=== PATIENT | female | born 1990 | race Caucasian/White ===

== ENCOUNTER → 2021-12-19 15:17 | Outpatient (CLI) | payer OTHER, SELFPAY ==
--- NOTE | 2021-12-19 15:20 | DI.US.S_ITS ---
PROCEDURE: US OB <= 14 WEEKS FETUS INDICATIONS: DATING AND VIABILITY OUTSIDE/PRIOR DATING DATA: Last menstrual period (LMP): 10/26/2021. LMP-based estimated date of delivery (LILLIE): 07/23/2022. First dating scan (date and location): 12/19/2021. Estimated date of delivery (LILLIE) from first dating scan: 07/27/2022. TECHNIQUE: Real-time scanning was performed of the fetus and maternal pelvic organs, with image documentation. COMPARISON: None. FINDINGS: A single living intrauterine gestation is present, with a heart rate of 139 beats per minute. [place]-rump length is 10 mm, corresponding to a 7 week 1 day gestation. There is a possible small perigestational hemorrhage measuring roughly 12 mm. The yolk sac appears slightly irregular. Maternal organs: Ovaries left ovarian cyst measuring 28 mm. Right ovary/adnexal region grossly unremarkable.. IMPRESSION: 1. Single living intrauterine gestation. 2. Slightly irregular yolk sac. Recommend continued sonographic and clinical follow-up. 3. Left ovarian cyst. Recommend attention to this region on follow-up imaging studies. We strive to produce accurate, complete, and clear reports of imaging services. To assist us in improving patient care, this report was composed using standard report templates and voice recognition software. Therefore, it may contain abnormal punctuation, insertions and/or omissions. Occasional wrong-word or sound-alike substitutions may occur. Though we review the report and make efforts to correct it, we do recommend that the report be read carefully in proper context to recognize any text inaccuracies. Dictated by: Jacy Thompson M.D. on 12/19/2021 at 16:26 Transcribed by: SOFIE on 12/19/2021 at 16:28 Approved by: Jacy Thompson M.D. on 12/19/2021 at 16:57
== END ==
PROVIDERS: Referring Provider Obstetrics & Gynecology; Visit Provider Obstetrics & Gynecology
DX: O34.81 Maternal care for other abnormalities of pelvic organs, first trimester (principal); N83.202 Unspecified ovarian cyst, left side; Z3A.01 Less than 8 weeks gestation of pregnancy
CPT/HCPCS: 36415; 76801; 76817; 80055; 81003; 81015; 86787; 86803; 86850; 86900; 86901; 87086; 87389

== ENCOUNTER → 2021-12-19 16:12 | Outpatient (CLI) | payer OTHER, SELFPAY ==
[2021-12-19 16:57] LABS: Add Manual Diff / Slide Review NO; Basophils Absolute Auto 100 /uL (0-100); Basophils Percent Auto 0.5 % (0-2); Eosinophils Absolute Auto 200 /uL (0-450); Eosinophils Percent Auto 2.2 % (2-4); Hematocrit 37.2 % (36-46); Hemoglobin 12.6 g/dL (12.0-16.0); Lymphocytes Absolute Auto 2800 /uL (1100-4500); Lymphocytes Percent Auto 26.3 % (25-40); Mean Corpuscular Hemoglobin 29.1 PG (26-34); Mean Corpuscular Volume 85.7 fL (80-100); Monocytes Absolute Auto 1000 /uL (0-900); Monocytes Percent Auto 9.5 % (3-14); Neutrophils Absolute Auto 6600 /uL (1500-7000); Neutrophils Percent Auto 61.5 % (50-75); Platelet Count 293 X10^3/uL (150-400); Red Blood Cell Count 4.34 X10^6/uL (4.0-5.2); Red Cell Distribution Width 12.6 % (11.6-14.8); White Blood Cell Count 10.7 X10^3/uL (4.5-11.0)
[2021-12-19 17:10] LABS: Appearance Urine UA CLEAR; Bilirubin Urine UA NEGATIVE (NEGATIVE); Color Urine UA YELLOW; Glucose Urine UA NEGATIVE (Negative); Ketones Urine UA NEGATIVE (NEGATIVE); Leukocyte Esterase Urine UA 1+ (NEGATIVE); Nitrite Urine UA NEGATIVE (Negative); Occult Blood Urine UA NEGATIVE (Negative); Protein Urine UA NEGATIVE (Negative); Specific Gravity Urine UA <=1.005 (1.000-1.035); Urobilinogen Urine UA 0.2 E.U./dL (0.2)
[2021-12-19 17:40] LABS: Bacteria Urine Occasional (0-1); RBC Urine 0-1/HPF (0-5/HPF); Squamous Epithelial Cell Urine 5-10 /HPF (0-5/HPF); WBC Urine 0-1/HPF (0-5/HPF)
[2021-12-20 05:11] LABS: Varicella IgG Antibody 767 index (Immune >165)
[2021-12-20 07:36] LABS: RPR Screen Non Reactive (Non Reactive)
[2021-12-22 16:37] LABS: Hepatitis B Surface Antigen NEGATIVE s/c (NEGATIVE); Rubella Antibody IgG 11.5 IU/mL (>15)
[2021-12-22 17:01] LABS: HIV 1 & 2 Ab/Ag 4th Gen Combo NEGATIVE (NEGATIVE); Hep C Virus Ab w/Reflex Quant NEGATIVE s/c (NEGATIVE)
== END ==
PROVIDERS: Referring Provider Obstetrics & Gynecology; Visit Provider Obstetrics & Gynecology
DX: Z34.81 Encounter for supervision of other normal pregnancy, first trimester (principal)
CPT/HCPCS: 36415; 80055; 81003; 81015; 86787; 86803; 86850; 86900; 86901; 87086; 87389

== ENCOUNTER → 2021-12-30 11:19 | Outpatient (CLI) | payer OTHER, SELFPAY ==
--- NOTE | 2021-12-30 11:20 | DI.US.S_ITS ---
PROCEDURE: US OB <= 14 WEEKS FETUS INDICATIONS: F/U viability from US on 12/19 OUTSIDE/PRIOR DATING DATA: Last menstrual period (LMP): 10/26/2021. LMP-based estimated date of delivery (LILLIE): 08/02/2022. Estimated date of delivery (LILLIE) from first dating scan: 08/06/2022 The calculations are made using the clinical LILLIE of 08/02/2022. TECHNIQUE: Real-time scanning was performed of the fetus and maternal pelvic organs, with image documentation. Endovaginal scanning was also performed to better visualize the fetus and maternal ovaries. COMPARISON: None. FINDINGS: Mean gestational sac diameter 5.2 centimeters. [place]-rump length 2.2 centimeters. Estimated gestational age 8 weeks 6 days on the basis of crown-rump length. heart rate 163 beats per minute small subchorionic hemorrhage adjacent to the gestational sac measuring 1.5 x 2.5 x 0.6 centimeters. This is increased from prior study. Anechoic left ovarian simple cyst. IMPRESSION: Single living intrauterine gestation with estimated gestational age 8 weeks 6 days on the basis of crown-rump length. Interval enlargement of small subchorionic hemorrhage. Dictated by: Mehul Thorne M.D. on 12/30/2021 at 14:21 Approved by: Mehul Thorne M.D. on 12/30/2021 at 14:23
== END ==
PROVIDERS: Referring Provider Obstetrics & Gynecology; Visit Provider Obstetrics & Gynecology
DX: Z3A.08 8 weeks gestation of pregnancy; Z36.2 Encounter for other antenatal screening follow-up
CPT/HCPCS: 76801

== ENCOUNTER → 2022-02-18 11:04 | Outpatient (CLI) | payer OTHER, SELFPAY ==
[2022-02-20 19:31] LABS: AFP, Serum 28.6 ng/mL (.); Estriol, Free 0.97 ng/mL (.); Inhibin A, Dimeric 101.57 pg/mL (.); Inhibin A, MoM 0.81 (.); Maternal Ethnicity Caucasian (.); Maternal Weight 222 lbs (.); Number of Fetuses No (.); OSBR Risk 1 IN 10000 (.); Results Report (.); Test Results *Screen Negative* (.); hCG, MoM 1.68 (.); hCG, Serum 52672 mIU/mL (.)
== END ==
PROVIDERS: Referring Provider Obstetrics & Gynecology; Visit Provider Obstetrics & Gynecology
DX: Z34.82 Encounter for supervision of other normal pregnancy, second trimester (principal); Z11.3 Encounter for screening for infections with a predominantly sexual mode of transmission; Z3A.16 16 weeks gestation of pregnancy
CPT/HCPCS: 82105; 82677; 84702; 86336

== ENCOUNTER → 2022-03-25 08:33 | Outpatient (CLI) | payer OTHER, SELFPAY ==
--- NOTE | 2022-03-25 08:34 | DI.US.S_ITS ---
PROCEDURE: US OB >= 14 WEEKS FETUS INDICATIONS: ANATOMY OUTSIDE/PRIOR DATING DATA: Last menstrual period (LMP): 10/26/2021. LMP-based estimated date of delivery (LILLIE): 08/02/2022. First dating scan (date and location): 12/19/2021. Estimated date of delivery (LILLIE) from first dating scan: 08/06/2022. The calculations are made using the clinical LILLIE of 08/02/2022. TECHNIQUE: Real-time scanning was performed of the fetus, with image documentation and biometric measurements. COMPARISON: [facility], OB <= 14 WEEKS FETUS, 12/30/2021, 12:35. FINDINGS: General: A single living intrauterine gestation is present. Presentation: Breech. Placenta: Placental position is posterior, without previa. Amniotic fluid index: 18 cm, normal range is 5-24 cm. Single deepest vertical pocket is 5.3 cm. heart rate: 135 beats per minute. Maternal cervical canal: 4 cm long. Normal lower limit is 2.5 cm. biometrics: Biparietal diameter: 5 cm, 21 weeks 2 days Head circumference: 19.1 cm, 21 weeks 2 days Abdominal circumference: 15.9 cm, 21 weeks 0 days Femur length: 3.7 cm, 21 weeks 5 days Clinically estimated gestational age: 21 weeks 3 days Composite gestational age from present scan: 21 weeks 2 days Estimated weight and percentile: 416 g, 39th percentile Anatomic survey: Neuro: Ventricles are non-dilated at less than 10 mm. Cisterna magna is normal at 3-11 mm. Cerebellum is normal in size and morphology. Nuchal skin fold: Normal at less than 6 mm between 14-21 weeks gestational age. Face: Nose and lips, facial profile are normal. Spine: No evidence for spina bifida. Heart: RVOT is normal. The four-chamber heart and LVOT are not well seen. Diaphragm: Diaphragm is intact. Stomach: Left-sided stomach is present. Kidneys: No hydronephrosis. Normal is less than 5 mm in 2nd trimester, less than 7 mm in 3rd trimester. Cord: 3-vessel cord. Placental cord insertion is not well seen. Bladder: Normal in size. Extremities: All 4 extremities identified. IMPRESSION: 1. [place] living intrauterine at 21 weeks 2 days based on today's ultrasound. This is concordant with the prior dating. Fetus is in the 39th percentile for weight. 2. Normal placenta and amniotic fluid. 3. heart, four-chamber view and LVOT are not well seen. The placental cord insertion is not well seen. Otherwise normal anatomic anatomy. Recommend follow-up OB ultrasound. We strive to produce accurate, complete, and clear reports of imaging services. To assist us in improving patient care, this report was composed using standard report templates and voice recognition software. Therefore, it may contain abnormal punctuation, insertions and/or omissions. Occasional wrong-word or sound-alike substitutions may occur. Though we review the report and make efforts to correct it, we do recommend that the report be read carefully in proper context to recognize any text inaccuracies. Dictated by: Marky Macdonald M.D. on 03/25/2022 at 17:38 Approved by: Marky Macdonald M.D. on 03/25/2022 at 17:45
== END ==
PROVIDERS: Referring Provider Obstetrics & Gynecology; Visit Provider Obstetrics & Gynecology
DX: Z34.82 Encounter for supervision of other normal pregnancy, second trimester (principal); Z3A.21 21 weeks gestation of pregnancy
CPT/HCPCS: 76811

== ENCOUNTER 2022-03-27 18:22 | Emergency (ER) | payer OTHER, SELFPAY ==
[2022-03-27] VITALS (10 sets, daily range): BP systolic 122–141; BP diastolic 57–64; PULSE 99–124; RESP 18–28; TEMP 37.1–37.8; O2SAT 92–97; BMI 34.0
--- NOTE | 2022-03-27 18:40 | ED_ITS ---
HPI - SOB/Dyspnea General Chief Complaint: Shortness of Breath/Dyspnea Stated Complaint: cant breath well, asthma Time Seen by Provider: 03/27/22 18:39 Source: patient Mode of arrival: Ambulatory Limitations: no limitations History of Present Illness HPI Narrative: This is a 22 week female with asthma history who has had mild fevers according to the patient, cough, shortness of breath and chest tightness for the last several days. Patient states her child is positive for RSV had initial symptoms the patient began having symptoms. She is had some nasal congestion. She denies any active chest pain she has felt quite tight, she is been using her albuterol hourly sometimes but states it has not made much difference. She normally only uses her albuterol occasionally not on a daily basis. Patient does not use any steroid inhalers. She denies any nausea or vomiting. She denies any diarrhea or constipation, no dysuria urgency or frequency. No new abdominal pain, no vaginal bleeding, discharge or fluid. Patient states she has not been having any complications with her so far. Denies any surgeries besides wisdom teeth and tympanostomy tubes as a child. No known drug allergies she does have tree nut allergies. No tobacco. Her /ob provider is Dr. Quiroz. Related Data Home Medications Medication Instructions Recorded Confirmed albuterol sulfate 90 mcg/actuation 2 puff inhalation Q6H PRN 12/23/21 03/16/22 aerosol inhaler epinephrine 0.3 mg/0.3 mL 0.3 mg IM ONCE 12/23/21 03/16/22 injection, auto-injector (EpiPen) fluoxetine 20 mg capsule (Prozac) 60 mg PO DAILY 12/23/21 03/16/22 prenat.vits,bryson,cre-[id number]-[id number] 1 tab PO DAILY 12/23/21 03/16/22 Previous Rx's Medication Instructions Recorded albuterol sulfate 2.5 mg/3 mL 2.5 mg (3 mL) inhalation Q4H PRN 03/27/22 (0.083 %) solution for nebulization shortness of breath or wheezing #75 mL prednisone 20 mg tablet 40 mg PO DAILY #10 tabs 03/27/22 Allergies Allergy/AdvReac Type Severity Reaction Status Date / Time sesame seed Allergy Severe Anaphylaxis Verified 03/16/22 08:17 onion Allergy Intermediate ITCHING Verified 03/16/22 08:17 tree nuts Allergy Severe Anaphylaxis Uncoded 03/16/22 08:17 Review of Systems Review of Systems ROS Unobtainable: All systems reviewed & are unremarkable except as noted in HPI and below Patient History Medical History Anxiety Asthma Chicken pox (~1994) Depression Eczema Hearing decreased Ovarian cyst Vision disorder Surgical History Anesthesia History of tympanostomy (~1997) [place] teeth extracted (~2009) Family History Mother Skin cancer Family/Other Breast cancer Grandmother Leukemia Father Cholecystitis Mental health problem Grandmother Mental health problem Social History marital status: number of children: 1 household members: spouse and children lives independently: Yes housing: condominium (townhouse (base housing)) pets and animals: Yes (1 cat, 1 puppy) education level: college (some college) occupational status: employed current occupational exposures/hazards: No special ashley needs: No travel history: recent (domestic only) and over 6 months ago seatbelt use: always water heater temp set < 120 deg: Yes working smoke detector in home: Yes fire extinguisher in home: Yes carbon monox detector in home: Yes firearms in home: Yes firearms unloaded and locked: Yes do you feel safe at home: Yes Smoking Status: Never smoker second hand exposure: No alcohol intake: never substance use type: does not use during the past year weight has: other (fluctuates ~25 lb range) well-balanced diet: daily or most days daily servings fruits/ve-4 caffeine: Yes (Occasional, aware of 200mg limit) Type(s) of exercise: none Smoking Status: Never smoker Exam Narrative Exam Narrative: GEN: well nourished, well appearing female, alert and oriented x 3, patient appears to be in mild distress. Patient feels warm to touch. HEENT: Atraumatic, pupils are equal round reactive to light, extraocular movements are intact, nares are clear, Throat is clear without any exudates, erythema, tonsillar enlargement or uvular deviation HEART: Tachycardic but regular rate and rhythm without murmur, clicks, rubs. No swelling bilateral lower extremities. LUNGS:Lungs breath sounds equal bilaterally, no wheezes appreciated patient has good air movement bilaterally, no rales, crackles in the base, chest moves symmetrically, patient does have tachypnea. No accessory muscle use. ABD:bowel sounds normal, soft, non-tender, no guarding, rebound, rigidity, no masses noted, no hepatosplenomegaly :No CVA tenderness MSCL: Non-tender, no muscle atrophy, muscles strength 5/5 upper and lower extremities, full range of motion, normal gait NEURO:CN 2-12 intact, sensation normal SKIN: No rash, erythema or other skin changes Initial Vital Signs Initial Vital Signs: Vital Signs Pulse Rate 122 H 03/27/22 18:25 Pulse Oximetry 97 03/27/22 18:25 Course Orders Ordered: Discontinued Medications Acetaminophen (Acetaminophen 325 Mg Tablet) 975 mg PO NOW ONE Stop: 03/27/22 18:47 Last Admin: 03/27/22 19:13 Dose: 975 mg Documented By: ALLYSSA Sodium Chloride (Normal Saline 0.9%) 1,000 mls @ 1,000 mls/hr IV BOLUS ONE Stop: 03/27/22 19:45 Last Infusion: 03/27/22 20:54 Dose: 0 mls/hr Documented By: Admin: 03/27/22 19:13 Dose: 1,000 mls/hr Documented By: ALLYSSA Methylprednisolone (Methylprednisolone 125 Mg/2 Ml Vial) 125 mg IV NOW ONE Stop: 03/27/22 18:55 Last Admin: 03/27/22 19:13 Dose: 125 mg Documented By: ALLYSSA Potassium Chloride (Potassium Chloride 20 Meq Tab) 40 meq PO NOW ONE Stop: 03/27/22 19:47 Last Admin: 03/27/22 20:07 Dose: 40 meq Documented By: ALLYSSA Reevaluation(s) Reevaluation #1: Patient is not wheezy on exam her weekly breathing has improved temperature is improved and well still slightly tachycardic. She notes she has not been using a spacer with her albuterol at home, may be more helpful that way she does have a nebulizer and asked for vials. We discussed doing a course of steroids she does feel like the Solu-Medrol here has been helpful. We did not do any albuterol or DuoNeb here but she has improved. Time: 21:10 Vital Signs Vital signs: Vital Signs - 8 hr 03/27/22 18:34 03/27/22 18:25 03/27/22 18:26 Temperature 100.1 F H Pulse Rate 118 H 122 H Respiratory Rate 28 H Blood Pressure 141/64 H 141/64 H Pulse Oximetry 96 97 Oxygen Delivery Method Room Air 03/27/22 18:26 03/27/22 18:30 03/27/22 18:30 Temperature Pulse Rate 121 H 123 H Respiratory Rate Blood Pressure 132/58 L Pulse Oximetry 96 95 Oxygen Delivery Method 03/27/22 19:00 03/27/22 19:00 03/27/22 19:30 Temperature Pulse Rate 124 H Respiratory Rate 23 Blood Pressure 124/60 122/64 Pulse Oximetry 95 Oxygen Delivery Method 03/27/22 19:30 03/27/22 20:00 03/27/22 20:00 Temperature Pulse Rate 116 H 116 H Respiratory Rate 21 26 H Blood Pressure 126/57 L Pulse Oximetry 93 92 Oxygen Delivery Method Room Air MDM - SOB/Dyspnea Lab Data Result diagrams: 03/27/22 18:53 03/27/22 18:53 Labs: Lab Results 03/27/22 03/27/22 03/27/22 Range/Units 18:40 18:40 18:53 WBC (4.5-11.0) X10^3/uL RBC (4.0-5.2) X10^6/uL Hgb (12.0-16.0) g/dL Hct (36-46) % MCV (80-100) fL MCH (26-34) PG MCHC (30-36) % RDW (11.6-14.8) % Plt Count (150-400) X10^3/uL Neut % (Auto) (50-75) % Lymph % (Auto) (25-40) % [place] % (Auto) (3-14) % Eos % (Auto) (2-4) % Baso % (Auto) (0-2) % Neut # (Auto) (0612-8634) /uL Lymph # (Auto) (3929-8736) /uL [place] # (Auto) (0-900) /uL Eos # (Auto) (0-450) /uL Baso # (Auto) (0-100) /uL PT (10.1-12.7) SECONDS INR (0.9-1.3) APTT (26-36) SECONDS Sodium (137-145) mmol/L Potassium (3.4-5.1) mmol/L Chloride (98-107) mmol/L Carbon Dioxide (22-32) mmol/L BUN (7-17) mg/dL Creatinine (0.52-1.04) mg/dL Estimated GFR (>60) mL/min BUN/Creatinine Ratio (6-22) Glucose (70-100) mg/dL Lactate (0.7-2.1) mmol/L Calcium (8.4-10.2) mg/dL Total Bilirubin (0.2-1.3) mg/dL AST (14-36) IU/L ALT (<35) IU/L Alkaline Phosphatase (38-126) U/L Total Creatine Kinase (30-135) U/L CK-MB (CK-2) CK-MB (CK-2) Rel Index Troponin I (0.01-0.034) ng/mL Total Protein (6.3-8.2) g/dL Albumin (3.5-5.0) g/dL Globulin (1.7-4.1) g/dL Albumin/Globulin Ratio (1.0-2.8) Procalcitonin (<0.5) ng/mL Urine Color Yellow Urine Appearance Clear Urine pH 7.5 (4.5-8.0) Ur Specific Shorter 1.020 (1.000-1.035) Urine Protein 2+ H (Negative) Urine Glucose (UA) Trace H (Negative) g/dL Urine Ketones 3+ H (NEGATIVE) Urine Occult Blood Negative (Negative) Urine Nitrate Negative (Negative) Urine Bilirubin Negative (NEGATIVE) Ur Bilirubin Confirm Positive H (Negative) Urine Urobilinogen 1.0 (0.2) E.U./dL Ur Leukocyte Esterase Trace H (NEGATIVE) Urine RBC 0-1/hpf (0-5/HPF) Urine WBC 1-5/hpf (0-5/HPF) Ur Squamous Epith Cells 5-10 /hpf H (0-5/HPF) Amorphous Sediment 1+ Urine Bacteria Moderate (10-30) H (None) Ur Culture Indicated? Specimen cultured SARS-CoV-2 (PCR) Negative (Negative) Influenza A (RT-PCR) Flu a negative (NEGATIVE) Influenza B (RT-PCR) Flu b negative (NEGATIVE) RSV (PCR) Positive A (Negative) 03/27/22 03/27/22 03/27/22 Range/Units 18:53 18:53 18:53 WBC 7.1 (4.5-11.0) X10^3/uL RBC 4.08 (4.0-5.2) X10^6/uL Hgb 12.0 (12.0-16.0) g/dL Hct 34.8 L (36-46) % MCV 85.2 (80-100) fL MCH 29.5 (26-34) PG MCHC 34.6 (30-36) % RDW 12.9 (11.6-14.8) % Plt Count 228 (150-400) X10^3/uL Neut % (Auto) 71.2 (50-75) % Lymph % (Auto) 13.3 L (25-40) % [place] % (Auto) 13.0 (3-14) % Eos % (Auto) 2.2 (2-4) % Baso % (Auto) 0.3 (0-2) % Neut # (Auto) 5000 (3671-9542) /uL Lymph # (Auto) 900 L (1205-4223) /uL [place] # (Auto) 900 (0-900) /uL Eos # (Auto) 200 (0-450) /uL Baso # (Auto) 0 (0-100) /uL PT 12.2 (10.1-12.7) SECONDS INR 1.1 (0.9-1.3) APTT 26 (26-36) SECONDS Sodium (137-145) mmol/L Potassium (3.4-5.1) mmol/L Chloride (98-107) mmol/L Carbon Dioxide (22-32) mmol/L BUN (7-17) mg/dL Creatinine (0.52-1.04) mg/dL Estimated GFR (>60) mL/min BUN/Creatinine Ratio (6-22) Glucose (70-100) mg/dL Lactate (0.7-2.1) mmol/L Calcium (8.4-10.2) mg/dL Total Bilirubin (0.2-1.3) mg/dL AST (14-36) IU/L ALT (<35) IU/L Alkaline Phosphatase (38-126) U/L Total Creatine Kinase (30-135) U/L CK-MB (CK-2) CK-MB (CK-2) Rel Index Troponin I (0.01-0.034) ng/mL Total Protein (6.3-8.2) g/dL Albumin (3.5-5.0) g/dL Globulin (1.7-4.1) g/dL Albumin/Globulin Ratio (1.0-2.8) Procalcitonin (<0.5) ng/mL Urine Color Urine Appearance Urine pH (4.5-8.0) Ur Specific Shorter (1.000-1.035) Urine Protein (Negative) Urine Glucose (UA) (Negative) g/dL Urine Ketones (NEGATIVE) Urine Occult Blood (Negative) Urine Nitrate (Negative) Urine Bilirubin (NEGATIVE) Ur Bilirubin Confirm (Negative) Urine Urobilinogen (0.2) E.U./dL Ur Leukocyte Esterase (NEGATIVE) Urine RBC (0-5/HPF) Urine WBC (0-5/HPF) Ur Squamous Epith Cells (0-5/HPF) Amorphous Sediment Urine Bacteria (None) Ur Culture Indicated? SARS-CoV-2 (PCR) (Negative) Influenza A (RT-PCR) (NEGATIVE) Influenza B (RT-PCR) (NEGATIVE) RSV (PCR) (Negative) 03/27/22 03/27/22 Range/Units 18:53 18:53 WBC (4.5-11.0) X10^3/uL RBC (4.0-5.2) X10^6/uL Hgb (12.0-16.0) g/dL Hct (36-46) % MCV (80-100) fL MCH (26-34) PG MCHC (30-36) % RDW (11.6-14.8) % Plt Count (150-400) X10^3/uL Neut % (Auto) (50-75) % Lymph % (Auto) (25-40) % [place] % (Auto) (3-14) % Eos % (Auto) (2-4) % Baso % (Auto) (0-2) % Neut # (Auto) (5157-6686) /uL Lymph # (Auto) (5761-9388) /uL [place] # (Auto) (0-900) /uL Eos # (Auto) (0-450) /uL Baso # (Auto) (0-100) /uL PT (10.1-12.7) SECONDS INR (0.9-1.3) APTT (26-36) SECONDS Sodium 133 L (137-145) mmol/L Potassium 3.1 L (3.4-5.1) mmol/L Chloride 102 (98-107) mmol/L Carbon Dioxide 18 L (22-32) mmol/L BUN 4 L (7-17) mg/dL Creatinine 0.43 L (0.52-1.04) mg/dL Estimated GFR > 60 (>60) mL/min BUN/Creatinine Ratio 9.3 (6-22) Glucose 133 H (70-100) mg/dL Lactate 1.9 (0.7-2.1) mmol/L Calcium 8.5 (8.4-10.2) mg/dL Total Bilirubin 0.3 (0.2-1.3) mg/dL AST 23 (14-36) IU/L ALT 21 (<35) IU/L Alkaline Phosphatase 67 (38-126) U/L Total Creatine Kinase 96 (30-135) U/L CK-MB (CK-2) TNP CK-MB (CK-2) Rel Index TNP Troponin I < 0.012 (0.01-0.034) ng/mL Total Protein 7.4 (6.3-8.2) g/dL Albumin 3.7 (3.5-5.0) g/dL Globulin 3.7 (1.7-4.1) g/dL Albumin/Globulin Ratio 1.0 (1.0-2.8) Procalcitonin 0.07 (<0.5) ng/mL Urine Color Urine Appearance Urine pH (4.5-8.0) Ur Specific Shorter (1.000-1.035) Urine Protein (Negative) Urine Glucose (UA) (Negative) g/dL Urine Ketones (NEGATIVE) Urine Occult Blood (Negative) Urine Nitrate (Negative) Urine Bilirubin (NEGATIVE) Ur Bilirubin Confirm (Negative) Urine Urobilinogen (0.2) E.U./dL Ur Leukocyte Esterase (NEGATIVE) Urine RBC (0-5/HPF) Urine WBC (0-5/HPF) Ur Squamous Epith Cells (0-5/HPF) Amorphous Sediment Urine Bacteria (None) Ur Culture Indicated? SARS-CoV-2 (PCR) (Negative) Influenza A (RT-PCR) (NEGATIVE) Influenza B (RT-PCR) (NEGATIVE) RSV (PCR) (Negative) Urine Dip Bedside Urine Glucose Negative Bedside Urine Bilirubin + 1 Bedside Urine Ketone +++ 80 Urine Specific Shorter 1.010 Bedside Urine Occult Blood - Negative Bedside Urine pH 8.5 Bedside Urine Protein ++ 100 Bedside Urine Urobilinogen +/- 1mg Bedside Urine Nitrite - Negative Bedside Urine Leukocytes - Negative Esterase Imaging Data Chest x-ray: Radiologist's Impression: [address] [address] XRay Report Signed Patient: Kianna Malone MR#: [id number] : 1990 Acct:[id number] Age/Sex: 31 / F Date of Service: 03/27/22 Loc: ED Accession Number: [id number] ?? Procedure: XR chest 1V Ordering Provider: Yadi Dietrich D.O. PROCEDURE:? XR CHEST 1V ? INDICATIONS:? Short of breath, cough, fever, , RSV exposure ? TECHNIQUE:? One view of the chest was acquired.? ? COMPARISON:? None. ? FINDINGS:? ? Surgical changes and devices:? None.? ? Lungs and pleura:? Low lung volumes are seen, with mild interstitial prominence at the lung bases.? No consolidated infiltrates are seen. On this semiupright portable chest examination, no large pneumothorax or large pleural effusions are seen.? ? Mediastinum:? Mediastinal contours appear normal.? Heart size is normal.? ? Bones and chest wall:? No suspicious bony lesions.? Overlying soft tissues appear unremarkable.? ? ? IMPRESSION:? Low lung volumes, with abnormal interstitial prominence at the lung bases.? Mild artifact versus pulmonary edema would be considered most likely.? Differential diagnosis would also include an atypical/viral infiltrate, however. ? If clinically appropriate, a short-term followup chest series (with PA and lateral views) performed in deep inspiration is suggested for further evaluation.? Dictated by: Wilian Christy M.D. on 03/27/2022 at 19:21 ? ? Approved by: Wilian Christy M.D. on 03/27/2022 at 19:22?? ECG Data Attestation: I personally reviewed and interpreted this ECG as follows: Prior ECG tracings: not available for review Interpretation: Sinus tachycardia rate of 125 DE 132 QRS is 74 QTC of 441. No acute ST elevat ion, patient does not have any ST elevation no depression appreciated. No priors for comparison. MDM Narrative Medical decision making narrative: This is a 31-year-old female with history of asthma who has had recent RSV exposure has had persistent cough she describes low-grade fevers and trouble breathing. Patient has been using her albuterol inhaler at home she has not found helpful. She has benefitted from steroids in the past. Patient is tachycardic responded to fluids low not normally normalized her heart rate, she is sinus tachycardia on EKG, troponin is negative, lab work shows some low potassium but some of this may be secondary to her frequent albuterol use at home she was given 1 dose of oral replacement, fluids which I think she would benefit from she has ketones in her urine. Chest x-ray shows atelectasis versus infection but she is RSV positive and I suspect this is the main source causing some reactive airway although she is not wheezy on exam. She feels much better after fluids, Solu-Medrol Tylenol. Return precautions discussed at length. Patient had all questions answered she does ask for refill of her albuterol vials she has a nebulizer and does not have a spacer so 1 was given. Discharge Plan Departure Patient Disposition: Home Clinical Impression: , RSV (respiratory syncytial virus infection) Instructions: DI for Respiratory Syncytial Virus -- Adults Activity Restrictions/Additional Instructions: Please follow-up with your physician for recheck. You did test positive for RSV today. You may take up to a 1000 mg of Tylenol every 6 hours for fevers. This can exacerbate your asthma, I would recommend taking steroids daily for the next 5 days. You may use albuterol vials 1-2 every 4-6 hours as needed. Please use a spacer with your albuterol inhaler as well. Talk with your OBGYN and let them know you are taking oral steroids Prescription printed. Please return for rapidly worsening symptoms increasing shortness of breath, increasing chest pain, lightheadedness or passing out, new swelling in her extremities or other new or concerning changes. Prescriptions: New albuterol sulfate 2.5 mg /3 mL (0.083 %) solution for nebulization 2.5 mg inhalation Q4H PRN (Reason: shortness of breath or wheezing) Qty: 75 0RF prednisone 20 mg tablet 40 mg PO DAILY Qty: 10 0RF No Action prenat.vits,bryson,[id number] Tablet 1 tab PO DAILY fluoxetine [Prozac] 20 mg capsule 60 mg PO DAILY albuterol sulfate 90 mcg/actuation HFA aerosol inhaler 2 puff inhalation Q6H PRN epinephrine [EpiPen] 0.3 mg/0.3 mL auto-injector 0.3 mg IM ONCE Rx Instructions: as a single dose; may repeat once Referrals: ProviderJv [Primary Care Provider] - Visit Report Forms: Patient Portal/API
--- NOTE | 2022-03-27 18:46 | DI.RAD.S_ITS ---
PROCEDURE: XR CHEST 1V INDICATIONS: Short of breath, cough, fever, , RSV exposure TECHNIQUE: One view of the chest was acquired. COMPARISON: None. FINDINGS: Surgical changes and devices: None. Lungs and pleura: Low lung volumes are seen, with mild interstitial prominence at the lung bases. No consolidated infiltrates are seen. On this semiupright portable chest examination, no large pneumothorax or large pleural effusions are seen. Mediastinum: Mediastinal contours appear normal. Heart size is normal. Bones and chest wall: No suspicious bony lesions. Overlying soft tissues appear unremarkable. IMPRESSION: Low lung volumes, with abnormal interstitial prominence at the lung bases. Mild artifact versus pulmonary edema would be considered most likely. Differential diagnosis would also include an atypical/viral infiltrate, however. If clinically appropriate, a short-term followup chest series (with PA and lateral views) performed in deep inspiration is suggested for further evaluation. Dictated by: Wilian Christy M.D. on 03/27/2022 at 19:21 Approved by: Wilian Christy M.D. on 03/27/2022 at 19:22
[2022-03-27 19:12] LABS: Add Manual Diff / Slide Review NO; Basophils Absolute Auto 0 /uL (0-100); Basophils Percent Auto 0.3 % (0-2); Eosinophils Absolute Auto 200 /uL (0-450); Eosinophils Percent Auto 2.2 % (2-4); Hematocrit 34.8 % (36-46); Lymphocytes Absolute Auto 900 /uL (1100-4500); Lymphocytes Percent Auto 13.3 % (25-40); Mean Corpuscular HGB Conc 34.6 % (30-36); Mean Corpuscular Hemoglobin 29.5 PG (26-34); Mean Corpuscular Volume 85.2 fL (80-100); Monocytes Absolute Auto 900 /uL (0-900); Neutrophils Absolute Auto 5000 /uL (1500-7000); Neutrophils Percent Auto 71.2 % (50-75); Platelet Count 228 X10^3/uL (150-400); Red Blood Cell Count 4.08 X10^6/uL (4.0-5.2); Red Cell Distribution Width 12.9 % (11.6-14.8); White Blood Cell Count 7.1 X10^3/uL (4.5-11.0)
[2022-03-27] MEDS: methylPREDNISolone 125 MG/2 ML VIAL IV (19:13)
[2022-03-27] MEDS: SODIUM CHLORIDE 0.9% 1,000 ML 1000 ML IV (19:13)
[2022-03-27] MEDS: ACETAMINOPHEN 325 MG TABLET 975 MG PO (19:13)
[2022-03-27 19:19] LABS: Appearance Urine UA CLEAR; Bilirubin Urine UA NEGATIVE (NEGATIVE); Color Urine UA YELLOW; Glucose Urine UA TRACE g/dL (Negative); Ketones Urine UA 3+ (NEGATIVE); Leukocyte Esterase Urine UA TRACE (NEGATIVE); Nitrite Urine UA NEGATIVE (Negative); Occult Blood Urine UA NEGATIVE (Negative); Protein Urine UA 2+ (Negative)
[2022-03-27 19:19] LABS: INR 1.1 (0.9-1.3); Prothrombin Time 12.2 SECONDS (10.1-12.7)
[2022-03-27 19:20] LABS: pH Urine UA 7.5 (4.5-8.0)
[2022-03-27 19:22] LABS: Lactate (Lactic Acid) 1.9 mmol/L (0.7-2.1)
[2022-03-27 19:23] LABS: Alanine Aminotransferase 21 IU/L (<35); Albumin 3.7 g/dL (3.5-5.0); Alkaline Phosphatase 67 U/L (38-126); Aspartate Aminotransferase 23 IU/L (14-36); BUN Creatinine Ratio 9.3 (6-22); Bilirubin Total 0.3 mg/dL (0.2-1.3); Blood Urea Nitrogen 4 mg/dL (7-17); Calcium 8.5 mg/dL (8.4-10.2); Carbon Dioxide 18 mmol/L (22-32); Chloride 102 mmol/L (98-107); Creatine Kinase 96 U/L (30-135); Estimated Glomerular Filt Rate > 60 mL/min (>60); Globulin 3.7 g/dL (1.7-4.1); Glucose 133 mg/dL (70-100); HEMOLYSIS < 15 (0-50); Potassium 3.1 mmol/L (3.4-5.1); Sodium 133 mmol/L (137-145); Total Protein 7.4 g/dL (6.3-8.2)
[2022-03-27 19:26] LABS: PTT Partial Thromboplastin Tim 26 SECONDS (26-36)
[2022-03-27 19:27] LABS: Amorphous Sediment Urine 1+; Bacteria Urine Moderate (10-30); Culture Indicated Urine Specimen Cultured; Ictotest Urine Positive (Negative); RBC Urine 0-1/HPF (0-5/HPF); Squamous Epithelial Cell Urine 5-10 /HPF (0-5/HPF); WBC Urine 1-5/HPF (0-5/HPF)
[2022-03-27 19:35] LABS: Troponin I < 0.012 ng/mL (0.01-0.034)
[2022-03-27 19:39] LABS: Procalcitonin 0.07 ng/mL (<0.5)
[2022-03-27 19:46] LABS: Influenza A - CEPHEID Flu A NEGATIVE (NEGATIVE); Influenza B - CEPHEID Flu B NEGATIVE (NEGATIVE); Respiratory Syncytial Virus POSITIVE (Negative)
[2022-03-27] MEDS: POTASSIUM CHLORIDE 20 MEQ TAB 40 MEQ PO (20:07)
[2022-03-27 20:13] LABS: COVID-19 CEPHEID 4-PLEX PCR Negative (Negative)
== END 2022-03-27 21:18 | disposition home or self-care (01) ==
PROVIDERS: Emergency Provider Emergency Medicine
DX: J06.9 Acute upper respiratory infection, unspecified (principal); B97.4 Respiratory syncytial virus as the cause of diseases classified elsewhere; Z20.822 Contact with and (suspected) exposure to COVID-19; Z3A.22 22 weeks gestation of pregnancy
CPT/HCPCS: 0241U; 36415; 71045; 80053; 81001; 81003; 82550; 83605; 84145; 84484; 85025; 85610; 85730; 87040; 87086; 93005; 96361; 96374; 99284; J2930

== ENCOUNTER → 2022-05-23 10:49 | Outpatient (CLI) | payer OTHER, SELFPAY ==
[2022-05-23 12:48] LABS: Hematocrit 35.2 % (36-46)
[2022-05-23 13:07] LABS: GTT (PREG) 1 Hour PP 50gm Dose 136 mg/dL (76-139)
== END ==
PROVIDERS: Referring Provider Obstetrics & Gynecology; Visit Provider Obstetrics & Gynecology
DX: Z34.82 Encounter for supervision of other normal pregnancy, second trimester (principal); Z3A.26 26 weeks gestation of pregnancy
CPT/HCPCS: 36415; 82950; 85014; 85018

== ENCOUNTER → 2022-07-09 09:52 | Outpatient (CLI) | payer OTHER, SELFPAY ==
[2022-07-10 14:32] LABS: Strep Grp B PCR POS for Grp B Strep
== END ==
PROVIDERS: Visit Provider Obstetrics & Gynecology
DX: Z34.83 Encounter for supervision of other normal pregnancy, third trimester (principal); Z3A.36 36 weeks gestation of pregnancy
CPT/HCPCS: 87653

== ENCOUNTER 2022-07-29 08:20 | Inpatient (IN) | payer OTHER, SELFPAY ==
[2022-07-29 09:14] VITALS: BP 126/57
--- NOTE | 2022-07-29 10:38 | PM.OBHP.IH.1 ---
OB HPI Date/Time Date of admission: 07/29/22 Date Patient Seen: 07/29/22 History of Present Condition Chief complaint: observation of labor LILLIE Calculator Estimated Delivery Date Method Current WG Current Estimate 08/02/22 LMP (Certain) 39w 3d Other Estimates 08/05/22 Ultrasound #1 39w 0d Estimated Gestational Age (weeks): 39w3d : 2 Para: 1 Narrative: Pt is a 31yo at 39w3d here with contractions. The pt reports contractions began around 4am, increasing in frequency since then. She has had bloody show. No leaking fluid. She continues to feel her baby move regularly. Her has been complicated by anxiety/depression, and the pt is on Fluoxetine with improvement in her mood. care: initiated at week # (16) and pounds weight gain (32) Dating criteria OB: LMP confirmed by 1st trimester US Ultrasounds: normal 1st trimester US and normal mid trimester US Obstetrical complications: none Medical complications OB: psychiatric (anxiety and depression) Preadmission Labs Last OB Lab Results: Blood Type B Positive 07/29/22 11:00 Antibody Screen Negative 07/29/22 11:00 Hematocrit 39.2 % (36-46) 07/29/22 11:00 Hemoglobin 13.2 g/dL (12.0-16.0) 07/29/22 11:00 Hepatitis B Surface Antigen Negative s/c (NEGATIVE) 12/19/21 16:26 Hepatitis C Antibody Negative s/c (NEGATIVE) 12/19/21 16:26 Rubella Antibody 11.5 IU/mL (>15) L 12/19/21 16:26 Varicella-Zoster IgG Antibody 767 index (Immune >165) 12/19/21 16:26 Glucose 1 Hour 136 mg/dL (76-139) 05/23/22 10:52 Group B Streptococcus (PCR) Pos for grp b strep H 07/09/22 09:52 -: Urine: negative Genetic Screens: Quad screen: Normal External Labs -: Urine: negative Prior (ies) Past Pregnancies Del. Date GA/Weeks Labor Lgth Wt Sex Route Outcome Anesthesia Place Delv Breastfeed Preg Comp Name 10/30/18 37 10 7 lb 8 oz Female vaginal live - full term [place] 6 months (mostly pumping) none Layla Faisal-Minda Evaluation Evaluation Baseline heart rate: 130 Variability: Moderate (11-25) monitor accelerations: Present Monitor Decelerations: Absent Contraction Frequency (minutes): 4 Dilation (cm): 3.5 Effacement (%): 90 Dilation: 3-4 cm Effacement: >/=80% station: +1 Position of cervix: mid Consistency: soft Arreaga score: 11 PFSH Medical History Anxiety Asthma Chicken pox (~1994) Depression Eczema Hearing decreased Ovarian cyst Vision disorder Surgical History Anesthesia History of tympanostomy (~1997) [place] teeth extracted (~2009) Family History Mother Skin cancer Family/Other Breast cancer Grandmother Leukemia Father Cholecystitis Mental health problem Grandmother Mental health problem Social History marital status: number of children: 1 household members: spouse and children lives independently: Yes housing: condominium (townhouse (base housing)) pets and animals: Yes (1 cat, 1 puppy) education level: college (some college) occupational status: employed current occupational exposures/hazards: No special ashley needs: No travel history: recent (domestic only) and over 6 months ago seatbelt use: always water heater temp set < 120 deg: Yes working smoke detector in home: Yes fire extinguisher in home: Yes carbon monox detector in home: Yes firearms in home: Yes firearms unloaded and locked: Yes do you feel safe at home: Yes Smoking Status: Never smoker second hand exposure: No alcohol intake: never substance use type: does not use during the past year weight has: other (fluctuates ~25 lb range) well-balanced diet: daily or most days daily servings fruits/ve-4 caffeine: Yes (Occasional, aware of 200mg limit) Type(s) of exercise: none Meds Home Medications and Allergies Home Medications Medication Instructions Recorded Confirmed Type albuterol sulfate 90 mcg/actuation 2 puff inhalation Q6H PRN 12/23/21 07/23/22 History aerosol inhaler epinephrine 0.3 mg/0.3 mL 0.3 mg IM ONCE 12/23/21 07/23/22 History injection, auto-injector (EpiPen) fluoxetine 20 mg capsule (Prozac) 60 mg PO DAILY 12/23/21 07/23/22 History prenat.vits,bryson,cwj-qrbv-jdcnv 1 tab PO DAILY 12/23/21 07/23/22 History albuterol sulfate 2.5 mg/3 mL 2.5 mg (3 mL) inhalation Q4H PRN 03/27/22 07/23/22 Rx (0.083 %) solution for nebulization shortness of breath or wheezing #75 mL prednisone 20 mg tablet 40 mg PO DAILY #10 tabs 03/27/22 07/23/22 Rx double electric breast pump 1 ea topical .prn #1 ea 07/09/22 07/23/22 Rx Allergies Allergy/AdvReac Type Severity Reaction Status Date / Time sesame seed Allergy Severe Anaphylaxis Verified 07/23/22 10:55 onion Allergy Intermediate ITCHING Verified 07/23/22 10:55 tree nuts Allergy Severe Anaphylaxis Uncoded 07/23/22 10:55 OB Exam Narrative Exam Narrative: Gen: NAD, sitting comfortably in bed, appears well CV: RRR, no murmurs Resp: clear to auscultation bilaterally Abd: soft, nontender, gravid Ext: no edema Objective Labs 07/29/22 11:00 Assessment and Plan Assessment and Plan Assessment and Plan narrative: 31yo at 39w3d here in early labor. Pt is GBS positive. Due to this and being at term, the decision was made to augment labor to help labor progress. Will start IV antibiotics, and plan for AROM once adequate prophylaxis. - Expectant management, anticipate - FHT reassuring overall. Did have heart tones in the 90s when back on monitor after walking, however Category I since then. Will monitor closely. - Epidural for pain control when desired - GBS positive, start ampicillin prophylaxis now. Plan on AROM once adequate.
[2022-07-29] MEDS: AMPICILLIN 2,000 MG in SODIUM CHLORIDE 0.9% 100 ML 200 MG IV (11:00)
[2022-07-29] MEDS: LACTATED RINGERS 1,000 ML 100 ML IV ×2 (11:19→14:51)
[2022-07-29 11:23] LABS: Add Manual Diff / Slide Review NO; Basophils Absolute Auto 0 /uL (0-100); Basophils Percent Auto 0.2 % (0-2); Eosinophils Absolute Auto 100 /uL (0-450); Eosinophils Percent Auto 1.3 % (2-4); Hematocrit 39.2 % (36-46); Hemoglobin 13.2 g/dL (12.0-16.0); Lymphocytes Absolute Auto 1900 /uL (1100-4500); Lymphocytes Percent Auto 17.1 % (25-40); Mean Corpuscular HGB Conc 33.7 % (30-36); Mean Corpuscular Hemoglobin 29.7 PG (26-34); Mean Corpuscular Volume 88.2 fL (80-100); Monocytes Absolute Auto 900 /uL (0-900); Monocytes Percent Auto 8.3 % (3-14); Neutrophils Absolute Auto 8100 /uL (1500-7000); Neutrophils Percent Auto 73.1 % (50-75); Platelet Count 194 X10^3/uL (150-400); Red Blood Cell Count 4.45 X10^6/uL (4.0-5.2); Red Cell Distribution Width 13.8 % (11.6-14.8)
[2022-07-29 12:54] LABS: COVID19 - ADMIT (NP swab/PCR) Negative (Negative)
[2022-07-29] MEDS: OXYTOCIN PREMIX 30 UNIT/500 ML PLAST..BAG IV (14:45)
[2022-07-29] MEDS: LACTATED RINGERS 500 ML 1000 ML IV (14:51)
[2022-07-29] MEDS: AMPICILLIN 1,000 MG in SODIUM CHLORIDE 0.9% 100 ML 200 MG IV (15:24)
--- NOTE | 2022-07-29 15:48 | PM.OBPNLAB ---
Date/Time Date Patient Seen: 07/29/22 Time Patient Seen: 15:48 Pain Control Pain control: epidural Pelvic Exam Dilation (cm): 4.5 Effacement (%): 90 station: 0 Amniotic membrane status: Ruptured Comments: After informed consent, AROM performed with production of meconium-stained amniotic fluid. Contractions Pitocin rate (mU/min): 4 Status status: Category l Heart Rate Baseline: 125 Monitor Accelerations: Present Monitor Decelerations: Absent Monitor Variability: Moderate Assessment and Plan Comments: 31yo at 39w3d here in early labor.? Pt is GBS positive.? Ampicillin prophylaxis adequate. Pitocin initiated due to no significant cervical change. AROM now with meconium-stained amniotic fluid present. Making slow cervical change. - Expectant management, anticipate - FHT reassuring - Epidural for pain control working well - Continue pitocin, titrate as tolerated - Continue Ampicillin GBS prophylaxis
--- NOTE | 2022-07-29 17:11 | PM.OBPNLAB ---
Date/Time Date Patient Seen: 07/29/22 Time Patient Seen: 17:11 Pain Control Pain control: epidural Pelvic Exam Dilation (cm): 5.5 Effacement (%): 90 station: 0 Amniotic membrane status: Ruptured Contractions Monitor mode: External Pitocin rate (mU/min): 6 Contraction frequency (min): 3 Status status: Category l Heart Rate Baseline: 130 Monitor Accelerations: Present Monitor Decelerations: Absent Monitor Variability: Moderate Assessment and Plan Comments: 31yo at 39w3d here in early labor.? Pt is GBS positive.? Ampicillin prophylaxis adequate.? Pitocin initiated due to no significant cervical change.? AROMed with meconium-stained amniotic fluid present.? Making gradual cervical change. Will continue with pitocin augmentation, titrating up as tolerated and needed for good contraction pattern. RT was notified due to meconium. Anticipate . Plan of care was discussed with Dr Ibarra, who will take over management of the pts care.
--- NOTE | 2022-07-29 18:56 | PM.OBPRVD ---
Events: Meconium Stained Fluid Labor & Delivery Delivery date: 07/29/22 Cervical ripening method: none Induction method: per pitocin protocol Delivery monitor: external FHT and external uterine Route of delivery: Episiotomy description: None L&D Laceration Description: None Quantitative Blood Loss: 80 Anesthesia Type: Epidural Narrative: I assumed care of this patient at 5:[address] Robin. Patient was on Pitocin had rupture membranes at 3:00 p.m. today had adequate strip and was making progress per RN When patient became complete, she was positioned, sterile setting was in place. Patient only pushed 4 times starting at 0 station and on the 4th contraction was and we had a controlled vaginal delivery with perineal pressure. The umbilical cord was clamped baby was placed on the mother's abdomen there had been some meconium which was removed by the bulb syringe by the nursing team. Massage of the uterine fundus ensued the placenta spontaneously intravenous Pitocin was initiated and after several circulations throughout the mother's body the placenta was removed. The lower reproductive tract was examined there were no lacerations no suturing was required Quantitative findings there was 400 mL of amniotic fluid was collected just prior to delivery. At the conclusion of the delivery was 480 mL and the quantitative measuring apparatus thus only 80 mL of blood loss. See nursing notes for Apgars and weight that is not been determined as of this dictation [place] Baby 1: Infant gender: Male Presentation: vertex Position: Left Occiput Anterior Placenta delivery description: Expressed Cord Vessel Description: 3 Vessels and Nuchal Cord score (1 min): 7 score (5 min): 9 score (10 min): unknown Plan for aftercare: Routine care
[2022-07-30] MEDS: IBUPROFEN 600 MG TABLET PO ×3 (06:03→20:05)
[2022-07-30 06:31] LABS: Add Manual Diff / Slide Review NO; Basophils Absolute Auto 0 /uL (0-100); Basophils Percent Auto 0.3 % (0-2); Eosinophils Absolute Auto 200 /uL (0-450); Eosinophils Percent Auto 1.4 % (2-4); Hematocrit 36.8 % (36-46); Hemoglobin 12.5 g/dL (12.0-16.0); Lymphocytes Absolute Auto 2100 /uL (1100-4500); Lymphocytes Percent Auto 19.6 % (25-40); Mean Corpuscular Hemoglobin 29.9 PG (26-34); Mean Corpuscular Volume 88.1 fL (80-100); Monocytes Absolute Auto 1100 /uL (0-900); Monocytes Percent Auto 10.4 % (3-14); Neutrophils Absolute Auto 7400 /uL (1500-7000); Neutrophils Percent Auto 68.3 % (50-75); Platelet Count 193 X10^3/uL (150-400); Red Blood Cell Count 4.18 X10^6/uL (4.0-5.2); Red Cell Distribution Width 13.5 % (11.6-14.8); White Blood Cell Count 10.8 X10^3/uL (4.5-11.0)
[2022-07-30] MEDS: DOCUSATE 100 MG CAPSULE PO (09:09)
[2022-07-30] MEDS: PRENATAL VIT,CALC/IRON/FOLIC 1 TABLET 1 TAB PO (09:09)
--- NOTE | 2022-07-30 13:18 | PM.OBPN.1 ---
Subjective - OB Subjective Patient comments: no complaints, pain well controlled and tolerating diet baby status: other feeding status: exclusively bottle feeding Date Patient Seen: 07/30/22 Time Patient Seen: 13:22 Exam Const General: cooperative and healthy appearing Nutritional Appearance: overweight Orientation: oriented x3 Other: Fundus at umbilicus minimal tenderness Extrem General: other (Minimal edema) Objective Labs 07/30/22 06:20 Labs: Laboratory Results - last 24 hr 07/30/22 06:20 WBC 10.8 RBC 4.18 Hgb 12.5 Hct 36.8 MCV 88.1 MCH 29.9 MCHC 34.0 RDW 13.5 Plt Count 193 Neut % (Auto) 68.3 Lymph % (Auto) 19.6 L [place] % (Auto) 10.4 Eos % (Auto) 1.4 L Baso % (Auto) 0.3 Neut # (Auto) 7400 H Lymph # (Auto) 2100 [place] # (Auto) 1100 H Eos # (Auto) 200 Baso # (Auto) 0 Assessment & Plan Plan day: 1 plan OB: routine care Time Spent With Patient Time: Total time spent is greater than 50% in coordination of care (as documented) at patient's floor/unit and/or counseling patient: Time with patient: less than 15 minutes
--- NOTE | 2022-07-31 03:01 | P.DS_ITS ---
Discharge Providers Provider Date of admission: 07/29/22 08:20 Discharge Date: 07/31/22 Primary care physician: Jv CAVAZOS Provider Consults: 07/30/22 18:50 Consult to Day Habilitation Specialist Routine Comment: Discharge provider: Aishwarya Bang CNM, ARNP Summary Hospital Course Date Patient Seen: 07/31/22 Time Patient Seen: 03:01 Diagnoses: Z39.1 Hospital Course: Kianna lopez in early labor was treated for GBS, received pitocin and then AROM for augmentation of a slow labor. Patient only pushed 4 times starting at 0 station and on the 4th contraction was for taqueria NSVB. QBL 80 mL. Intact perineum. Placenta delivered spontaneously. Friend Baby ? ? ? Infant gender: Male ? ? ? Presentation: vertex ? ? ? Position: Left Occiput Anterior ? ? ? Placenta delivery description: Expressed ? ? ? Cord Vessel Description: 3 Vessels and Nuchal Cord ? ? ? score (1 min): 7 ? ? ? score (5 min): 9 ? ? ? Normal course. Peripartum Data Delivery Method: Natural Vaginal Laceration Description: None Episiotomy description: None 1: Gender: Male Time Spent with Patient Time attestation: Total time spent providing and/or coordinating discharge services: 30 min Time spent: Less than 30 minutes Specific discharge activities: Reviewed warning signs including bleeding, mood changes, increased risk of blood clots. Recommend hand expression, pumping, . Objective Labs 07/30/22 06:20 Labs: Laboratory Results - last 24 hr 07/30/22 06:20 WBC 10.8 RBC 4.18 Hgb 12.5 Hct 36.8 MCV 88.1 MCH 29.9 MCHC 34.0 RDW 13.5 Plt Count 193 Neut % (Auto) 68.3 Lymph % (Auto) 19.6 L [place] % (Auto) 10.4 Eos % (Auto) 1.4 L Baso % (Auto) 0.3 Neut # (Auto) 7400 H Lymph # (Auto) 2100 [place] # (Auto) 1100 H Eos # (Auto) 200 Baso # (Auto) 0 Exam Vital Signs (past 8 hours): 128/76, 92 bpm, 16 resps/min, 98.1 F Const General: cooperative, comfortable and well hydrated Nutritional Appearance: overweight Orientation: oriented x3 Eyes General: appearance normal, both eyes and all related structures Neck Neck: normal visual inspection Resp Effort & Inspection: normal respiratory effort and able to speak in complete sentences GI Inspection: normal to inspection Other: Fundal height at umbilicus Skin General: no rashes or lesions noted Lesions: no lesions Neuro General: normal light touch, pain and propioception Cognition: normal cognition Speech: speech normal Gait: normal gait Motor: muscle tone normal throughout Sensory Exam: no sensory deficits noted Extrem General: normal to inspection, full ROM, capillary refill normal and edema (mild pedal edema) Psych Appearance: grossly normal Discharge Plan Discharge Plan Patient Disposition: Home Provider Discharge Comment: with , driving to [facility] N[facility] where baby was transported Discharge orders & Medications Prescriptions: Continued double electric breast pump 1 ea topical .prn Qty: 1 0RF Rx Instructions: With supplies prenat.vits,bryson,kma-yuhe-ultai Tablet 1 tab PO DAILY fluoxetine [Prozac] 20 mg capsule 60 mg PO DAILY albuterol sulfate 90 mcg/actuation HFA aerosol inhaler 2 puff inhalation Q6H PRN epinephrine [EpiPen] 0.3 mg/0.3 mL auto-injector 0.3 mg IM ONCE Rx Instructions: as a single dose; may repeat once albuterol sulfate 2.5 mg /3 mL (0.083 %) solution for nebulization 2.5 mg inhalation Q4H PRN (Reason: shortness of breath or wheezing) Qty: 75 0RF Discontinued prednisone 20 mg tablet 40 mg PO DAILY Qty: 10 0RF Follow up/Referrals: ProviderJv [Primary Care Provider] - Laura Machado MD [Physician] - Emeterio Quiroz MD [Physician] - (Call to schedule 6 week visit. Call to have [facility] paperwork completed.) Diet/Activity/Treatments Diet: Diet as Tolerated Activity: low patterson activity for 2 weeks Skin/Wound/Dressing Care Skin care: usual care. Report to your healthcare provider any signs of infection, such as:: chills, fever, unusual drainage and unusual redness Visit Report/Discharge Packet Instructions: DI for Labor and Delivery, Vaginal , DI for Depression Stand Alone Forms: Patient Portal/API, Stroke Signs & Symptoms Discharge Data Primary Care Provider: ProviderJv
[2022-07-31] MEDS: IBUPROFEN 600 MG TABLET PO (03:20)
[2022-07-31] MEDS: ACETAMINOPHEN 325 MG TABLET 650 MG PO (03:20)
== END 2022-07-31 03:40 | disposition home or self-care (01) | DRG 807 ==
PROVIDERS: Obstetrics & Gynecology; Admitting Provider Family Medicine; Referring Provider Family Medicine; Visit Provider Family Medicine
DX: O99.824 Streptococcus B carrier state complicating childbirth (principal); Z37.0 Single live birth; O99.344 Other mental disorders complicating childbirth; F32.A Depression, unspecified; F41.9 Anxiety disorder, unspecified; Z3A.39 39 weeks gestation of pregnancy; Z20.822 Contact with and (suspected) exposure to COVID-19
CPT/HCPCS: 36415; 59050; 59400; 59409; 85025; 86850; 86900; 86901; 87635; C9803; G0379; J0290; J2590

== ENCOUNTER 2023-11-06 18:37 | Emergency (ER) | payer OTHER, SELFPAY ==
[2023-11-06 18:57] VITALS: BP 139/71; PULSE 113; RESP 16; TEMP 36.4; O2SAT 94; BMI 34.0
--- NOTE | 2023-11-06 19:25 | ED.NAVMDI ---
HPI - Nausea/Vomiting/Diarrhea General Chief complaint: Nausea/Vomiting/Diarrhea Stated complaint: vomiting Time Seen by Provider: 11/06/23 19:17 Source: patient Mode of arrival: Ambulatory History of Present Illness HPI Narrative: Patient is a 33-year-old female history of asthma presenting today with diarrhea nausea and vomiting. She reports that her daughter had a gastroenteritis like infection last week. However today she has had liquid diarrhea at least 10 times nonbloody. She has not been handful of times. She really denies any sort of abdominal pain but has frequent urge. She denies any recent antibiotics. He is generally does not feel well. No dizziness or syncopal episodes. Related Data Home Medications Medication Instructions Recorded Confirmed albuterol sulfate 90 mcg/actuation 2 puff inhalation Q6H PRN 12/23/21 09/08/22 aerosol inhaler epinephrine 0.3 mg/0.3 mL 0.3 mg IM ONCE 12/23/21 09/08/22 injection, auto-injector (EpiPen) fluoxetine 20 mg capsule (Prozac) 60 mg PO DAILY 12/23/21 09/08/22 prenat.vits,bryson,pej-oexa-uuwpu 1 tab PO DAILY 12/23/21 09/08/22 Previous Rx's Medication Instructions Recorded albuterol sulfate 2.5 mg/3 mL 2.5 mg (3 mL) inhalation Q4H PRN 03/27/22 (0.083 %) solution for nebulization shortness of breath or wheezing #75 mL double electric breast pump 1 ea topical .prn #1 ea 07/09/22 ondansetron 4 mg disintegrating 4 mg PO Q8H PRN nausea and 11/06/23 tablet vomiting #10 tabs Allergies Allergy/AdvReac Type Severity Reaction Status Date / Time sesame seed Allergy Severe Anaphylaxis Verified 09/08/22 09:35 onion Allergy Intermediate ITCHING Verified 09/08/22 09:35 tree nuts Allergy Severe Anaphylaxis Uncoded 09/08/22 09:35 Patient History Medical History Anxiety Asthma Chicken pox (~1994) Depression Eczema Hearing decreased Ovarian cyst Vision disorder Surgical History Anesthesia History of tympanostomy (~1997) [place] teeth extracted (~2009) Family History Mother Skin cancer Family/Other Breast cancer Grandmother Leukemia Father Cholecystitis Mental health problem Grandmother Mental health problem Social History marital status: number of children: 1 household members: spouse and children lives independently: Yes housing: condominium (townhouse (base housing)) pets and animals: Yes (1 cat, 1 puppy) education level: college (some college) occupational status: employed current occupational exposures/hazards: No special ashley needs: No travel history: recent (domestic only) and over 6 months ago seatbelt use: always water heater temp set < 120 deg: Yes working smoke detector in home: Yes fire extinguisher in home: Yes carbon monox detector in home: Yes firearms in home: Yes firearms unloaded and locked: Yes do you feel safe at home: Yes Smoking Status: Never smoker second hand exposure: No alcohol intake: never substance use type: does not use during the past year weight has: other (fluctuates ~25 lb range) well-balanced diet: daily or most days daily servings fruits/ve-4 caffeine: Yes (Occasional, aware of 200mg limit) Type(s) of exercise: none Smoking Status: Never smoker Substance Use Type: does not use Exam Initial Vital Signs Initial Vital Signs: Vital Signs Temperature 97.6 F 11/06/23 18:57 Pulse Rate 113 H 11/06/23 18:57 Respiratory Rate 16 11/06/23 18:57 Blood Pressure 139/71 11/06/23 18:57 Pulse Oximetry 94 11/06/23 18:57 Oxygen Delivery Method Room Air 11/06/23 18:57 GENERAL: Alert 33-year-old female appears to not feel well and in [no acute] distress. HEENT: Head atraumatic,EOMI, pupils reactive, face symmetric, [moist] mucous membranes CARDIOVASCULAR: Regular rate and rhythm without murmurs, rubs or gallops. RESPIRATORY: Breath sounds equal bilaterally, no wheezes rales or rhonchi. ABDOMEN: Soft, nontender. Normoactive bowel sounds all 4 quadrants. No guarding or rebound. : No CVA tenderness EXTREMITIES: Normal range of motion, no clubbing or edema. Neurovascularly intact NEUROLOGICAL: Alert and oriented x4.Normal gait and speech. SKIN: Warm, dry, no laceration, no petechiae, no rashes or lesions. Course Orders Ordered: ED Orders 11/06/23 19:42 GI Panel (Film Array) Stat 11/06/23 19:47 Urine Culture Stat Urine Microscopic Stat 11/06/23 19:50 Complete Blood Count AUTO DIFF Stat Comprehensive Metabolic Panel Stat Lipase Stat Discontinued Medications Sodium Chloride (Normal Saline 0.9%) 1,000 mls @ 1,000 mls/hr IV BOLUS ONE Stop: 11/06/23 20:18 Last Infusion: 11/06/23 20:58 Dose: Infused Documented By: Admin: 11/06/23 19:54 Dose: 1,000 mls/hr Documented By: STEPH Sodium Chloride (Normal Saline 0.9%) 1,000 mls @ 1,000 mls/hr IV BOLUS ONE Stop: 11/06/23 21:43 Last Infusion: 11/06/23 21:47 Dose: Infused Documented By: Admin: 11/06/23 20:58 Dose: 1,000 mls/hr Documented By: STEPH Ondansetron HCl (Ondansetron 4 Mg/2 Ml Inj) 4 mg IV NOW ONE Stop: 11/06/23 19:20 Last Admin: 11/06/23 19:54 Dose: 4 mg Documented By: STEPH Ondansetron HCl (Ondansetron 4 Mg Odt Prepack) 1 bottle MISC DIRECTED ONE Stop: 11/06/23 21:55 Last Admin: 11/06/23 22:04 Dose: 1 bottle Documented By: STEPH Pantoprazole Sodium (Pantoprazole 40 Mg Vial) 40 mg IV NOW ONE Stop: 11/06/23 19:20 Last Admin: 11/06/23 19:54 Dose: 40 mg Documented By: STEPH Vital Signs Vital signs: Vital Signs - 8 hr 11/06/23 18:57 11/06/23 20:25 11/06/23 20:26 Temperature 97.6 F Pulse Rate 113 H Respiratory Rate 16 Blood Pressure 139/71 126/67 Pulse Oximetry 94 98 Oxygen Delivery Method Room Air 11/06/23 20:26 11/06/23 20:30 11/06/23 20:30 Temperature Pulse Rate 98 H 98 H Respiratory Rate Blood Pressure 117/66 Pulse Oximetry 98 98 Oxygen Delivery Method 11/06/23 21:00 11/06/23 21:00 11/06/23 21:30 Temperature Pulse Rate 99 H Respiratory Rate Blood Pressure 125/72 131/74 Pulse Oximetry 97 Oxygen Delivery Method 11/06/23 21:30 Temperature Pulse Rate 101 H Respiratory Rate Blood Pressure Pulse Oximetry 99 Oxygen Delivery Method MDM - Nausea/Vomiting/Diarrhea Lab Data 11/06/23 19:50 11/06/23 19:50 Labs: Lab Results 11/06/23 11/06/23 11/06/23 Range/Units 19:42 19:47 19:50 WBC 16.6 H (4.5-11.0) X10^3/uL RBC 5.75 H (4.0-5.2) X10^6/uL Hgb 16.3 H (12.0-16.0) g/dL Hct 47.3 H (36-46) % MCV 82.1 (80-100) fL MCH 28.3 (26-34) PG MCHC 34.5 (30-36) % RDW 12.4 (11.6-14.8) % Plt Count 401 H (150-400) X10^3/uL Neut % (Auto) 83.9 H (50-75) % Lymph % (Auto) 5.4 L (25-40) % [place] % (Auto) 8.1 (3-14) % Eos % (Auto) 2.4 (2-4) % Baso % (Auto) 0.2 (0-2) % Neut # (Auto) 54990 H (5158-1393) /uL Lymph # (Auto) 900 L (7935-0604) /uL [place] # (Auto) 1300 H (0-900) /uL Eos # (Auto) 400 (0-450) /uL Baso # (Auto) 0 (0-100) /uL Sodium 141 (137-145) mmol/L Potassium 4.3 (3.4-5.1) mmol/L Chloride 109 H (98-107) mmol/L Carbon Dioxide 18 L (22-32) mmol/L BUN 19 H (7-17) mg/dL Creatinine 0.71 (0.52-1.04) mg/dL Estimated GFR > 60 (>60) mL/min BUN/Creatinine Ratio 26.8 H (6-22) Glucose 122 H (70-100) mg/dL Calcium 10.5 H (8.4-10.2) mg/dL Total Bilirubin 0.8 (0.2-1.3) mg/dL AST 27 (14-36) IU/L ALT 27 (<35) IU/L Alkaline Phosphatase 117 (38-126) U/L Total Protein 10.1 H (6.3-8.2) g/dL Albumin 5.3 H (3.5-5.0) g/dL Globulin 4.8 H (1.7-4.1) g/dL Albumin/Globulin Ratio 1.1 (1.0-2.8) Lipase 103 (23-300) U/L Urine RBC None seen (0-5/HPF) Urine WBC 1-5/hpf (0-5/HPF) Ur Squamous Epith Cells 1-5 /hpf (0-5/HPF) Urine Bacteria None seen (None) Hyaline Casts 1-5/lpf (None) Ur Culture Indicated? Specimen cultured Vol Urine Centrifuged 10ml (spun) Stl C. cayetanensis PCR Not detected (Not Detect) Stool Rotavirus (PCR) Not detected (Not Detect) Stool Adenovirus (PCR) Not detected (Not Detect) Stool Astrovirus (PCR) Not detected (Not Detect) Stool Cryptosporidium PCR Not detected (Not Detect) Stl E.coli Shiga Tox PCR Not detected (Not Detect) St Sh/Enteroin Ecoli PCR Not detected (Not Detect) Stl Enterotoxigenic E PCR Not detected (Not Detect) Stool EPEC (PCR) Not detected (Not Detect) Stl E. histolytica PCR Not detected (Not Detect) Stool Giardia Lamblia PCR Not detected (Not Detect) Stool Sapovirus (PCR) Not detected (Not Detect) Stl P. shigelloides PCR Not detected (Not Detect) St Y.enterocolitica PCR Not detected (Not Detect) Stool Vibrio (PCR) Not detected (Not Detect) Stl Vibrio cholerae PCR Not detected (Not Detect) Stl Enteroaggr Ecoli PCR Not detected (Not Detect) Stl Norovirus GI/GII PCR Detected (Not Detect) Campylobacter (PCR) Not detected (Not Detect) C. difficile Tox (PCR) Not detected (Not Detect) Salmonella (PCR) Not detected (Not Detect) Point of Care Testing Test Results Negative Urine Dip Bedside Urine Glucose Negative Bedside Urine Bilirubin + 1 Bedside Urine Ketone +/- 5 Urine Specific [place] 1.030 Bedside Urine Occult Blood - Negative Bedside Urine pH 5.5 Bedside Urine Protein + 30 Bedside Urine Urobilinogen - Negative Bedside Urine Nitrite - Negative Bedside Urine Leukocytes + 70 Esterase MDM Narrative Medical decision making narrative: Patient is a 33-year-old female presenting today with diarrhea. Other family members have had similar symptoms all resolved. She is noted to be slightly tachycardic heart rate 113 not hypotensive. Blood work has been reviewed WBC 16.6 hemoglobin 16.3 hematocrit 47.3 and platelets 401 thought to be secondary to slight dehydration and hemoconcentration. Sodium 141, potassium 4.3, chloride 109 bicarb 18, previously bicarb 18 in 2021 (during ) BUN 19 creatinine 0.7, glucose 122, bilirubin 0.8, AST 27, ALT 27, alk-phos 117, lipase 103 GI panel is positive for norovirus Urinalysis negative for UTI and Patient received 2 L of IV fluids along with Protonix and Zofran. He is feeling significantly better. She had at least 1 episode of here liquid watery diarrhea. Not recently on antibiotics C diff is negative. Multiple family members with similar symptoms probably all had norovirus. At this time discussed with her supportive care and oral rehydration and when to return to ED. Discharge Plan Departure Patient Disposition: Home Clinical Impression: Norovirus Instructions: Norovirus Infection Activity Restrictions/Additional Instructions: *You have been diagnosed with norovirus *What to do: At this time wash hands with soap and water well Increase fluid intake recommend Gatorade Pedialyte or something like that with real sugar. May increase diet as tolerated. *Continue to take medications as directed Imodium take as directed [id number] Zofran 4 mg every 8 hours for nausea or vomiting *Follow up with your primary care provider in 2-3 days or call [phone] *Return to ER if you should have significant decrease in urine, dizziness lightheadedness or any new, worsening or concerning symptoms Prescriptions: New ondansetron 4 mg tablet,disintegrating 4 mg PO Q8H PRN (Reason: nausea and vomiting) Qty: 10 0RF No Action double electric breast pump 1 ea topical .prn Qty: 1 0RF Rx Instructions: With supplies prenat.vits,bryson,[id number]-afjny Tablet 1 tab PO DAILY fluoxetine [Prozac] 20 mg capsule 60 mg PO DAILY albuterol sulfate 90 mcg/actuation HFA aerosol inhaler 2 puff inhalation Q6H PRN epinephrine [EpiPen] 0.3 mg/0.3 mL auto-injector 0.3 mg IM ONCE Rx Instructions: as a single dose; may repeat once albuterol sulfate 2.5 mg /3 mL (0.083 %) solution for nebulization 2.5 mg inhalation Q4H PRN (Reason: shortness of breath or wheezing) Qty: 75 0RF Referrals: ProviderJv [Primary Care Provider] - Stand Alone Forms: Patient Portal/API, Work Release Note
[2023-11-06] MEDS: ONDANSETRON 4 MG/2 ML INJ IV (19:54)
[2023-11-06] MEDS: SODIUM CHLORIDE 0.9% 1,000 ML 1000 ML IV ×2 (19:54→20:58)
[2023-11-06] MEDS: PANTOPRAZOLE 40 MG VIAL IV (19:54)
[2023-11-06 19:56] LABS: Add Manual Diff / Slide Review NO; Basophils Absolute Auto 0 /uL (0-100); Basophils Percent Auto 0.2 % (0-2); Eosinophils Absolute Auto 400 /uL (0-450); Eosinophils Percent Auto 2.4 % (2-4); Hematocrit 47.3 % (36-46); Hemoglobin 16.3 g/dL (12.0-16.0); Lymphocytes Absolute Auto 900 /uL (1100-4500); Lymphocytes Percent Auto 5.4 % (25-40); Mean Corpuscular HGB Conc 34.5 % (30-36); Mean Corpuscular Hemoglobin 28.3 PG (26-34); Mean Corpuscular Volume 82.1 fL (80-100); Monocytes Absolute Auto 1300 /uL (0-900); Monocytes Percent Auto 8.1 % (3-14); Neutrophils Absolute Auto 13900 /uL (1500-7000); Neutrophils Percent Auto 83.9 % (50-75); Platelet Count 401 X10^3/uL (150-400); Red Blood Cell Count 5.75 X10^6/uL (4.0-5.2); Red Cell Distribution Width 12.4 % (11.6-14.8); White Blood Cell Count 16.6 X10^3/uL (4.5-11.0)
[2023-11-06 20:13] LABS: Alanine Aminotransferase 27 IU/L (<35); Albumin 5.3 g/dL (3.5-5.0); Albumin Globulin Ratio 1.1 (1.0-2.8); Alkaline Phosphatase 117 U/L (38-126); Aspartate Aminotransferase 27 IU/L (14-36); BUN Creatinine Ratio 26.8 (6-22); Bilirubin Total 0.8 mg/dL (0.2-1.3); Blood Urea Nitrogen 19 mg/dL (7-17); Calcium 10.5 mg/dL (8.4-10.2); Carbon Dioxide 18 mmol/L (22-32); Chloride 109 mmol/L (98-107); Estimated Glomerular Filt Rate > 60 mL/min (>60); Globulin 4.8 g/dL (1.7-4.1); Glucose 122 mg/dL (70-100); HEMOLYSIS < 15 (0-50); Lipase 103 U/L (23-300); Potassium 4.3 mmol/L (3.4-5.1); Sodium 141 mmol/L (137-145); Total Protein 10.1 g/dL (6.3-8.2)
[2023-11-06 20:18] LABS: Bacteria Urine None Seen; Culture Indicated Urine Specimen Cultured; Hyaline Casts Urine 1-5/LPF; RBC Urine None Seen (0-5/HPF); Squamous Epithelial Cell Urine 1-5 /HPF (0-5/HPF); Urine Volume 10mL (spun); WBC Urine 1-5/HPF (0-5/HPF)
[2023-11-06 20:25] VITALS: O2SAT 98
[2023-11-06 20:26] VITALS: BP 126/67; PULSE 98; O2SAT 98
[2023-11-06 20:30] VITALS: BP 117/66; PULSE 98; O2SAT 98
[2023-11-06 21:00] VITALS: BP 125/72; PULSE 99; O2SAT 97
[2023-11-06 21:18] LABS: Adenovirus F 40/41 Not Detected (Not Detect); Astrovirus Not Detected (Not Detect); Campylobacter Not Detected (Not Detect); Clostridium difficile toxin AB Not Detected (Not Detect); Cryptosporidium Not Detected (Not Detect); Cyclospora cayetanensis Not Detected (Not Detect); Entamoeba histolytica Not Detected (Not Detect); Enteroaggregative E.coli Not Detected (Not Detect); Enteropathogenic E.coli Not Detected (Not Detect); Enterotoxigenic E.coli It/st Not Detected (Not Detect); Giardia lamblia Not Detected (Not Detect); Norovirus GI/GII Detected (Not Detect); Plesiomonsa shigelloides Not Detected (Not Detect); Rotavirus A Not Detected (Not Detect); Salmonella Not Detected (Not Detect); Sapovirus Not Detected (Not Detect); Shiga-like toxin-prod E.coli Not Detected (Not Detect); Shigella/Enteroinvasive E.coli Not Detected (Not Detect); Vibrio Not Detected (Not Detect); Vibrio cholerae Not Detected (Not Detect); Yersinia enterocolitica Not Detected (Not Detect)
[2023-11-06 21:30] VITALS: BP 131/74; PULSE 101; O2SAT 99
[2023-11-06] MEDS: ONDANSETRON 4 MG ODT PREPACK 1 BOTTLE MISC (22:04)
== END 2023-11-06 22:17 | disposition home or self-care (01) ==
PROVIDERS: Emergency Provider Emergency Medicine
DX: A08.11 Acute gastroenteropathy due to Norwalk agent (principal); R11.2 Nausea with vomiting, unspecified; Z20.822 Contact with and (suspected) exposure to COVID-19
CPT/HCPCS: 36415; 80053; 81003; 81015; 81025; 83690; 85025; 87086; 87507; 96361; 96374; 96375; 99284; C9113; J2405